=== PATIENT | female | born 1970 | race Caucasian/White ===

== ENCOUNTER 2018-11-15 23:40 | Emergency (ER) | payer MEDICAID ==
[2018-11-16] MEDS: KETOROLAC 15 MG INJ IV (01:08)
[2018-11-16] MEDS: ONDANSETRON 4 MG INJ IV (01:09)
[2018-11-16] MEDS: SOD CHLORIDE 0.9% 1,000 ML IV (01:09)
[2018-11-16 01:17] LABS: ADD MAN DIFF? NO
[2018-11-16 01:21] LABS: BASOPHILS % 0.2 % (0.0-2.0); EOSINOPHILS # 0.1 10^3/ul (0.0-0.5); HEMATOCRIT 35.5 % (37.0-47.0); HEMOGLOBIN 11.4 g/dl (12.0-16.0); LYMPHOCYTES # 1.3 10^3/ul (0.8-2.9); MEAN CORPUSCULAR HEMOGLOBIN 29.9 pg (29.0-33.0); MEAN CORPUSCULAR HGB CONC 32.1 g/dl (32.0-37.0); MEAN CORPUSCULAR VOLUME 93.2 fl (82.0-101.0); MEAN PLATELET VOLUME 10.4 fl (7.4-10.4); MONOCYTE # 0.6 10^3/ul (0.3-0.9); NEUTROPHILS % 65.6 % (39.0-77.0); PLATELET COUNT 305 10^3/UL (140-415); RED BLOOD COUNT 3.81 10^6/ul (4.20-5.40); RED CELL DISTRIBUTION WIDTH 12.3 % (11.5-14.5)
[2018-11-16 01:21] LABS: WHITE BLOOD COUNT 6.1 10^3/ul (4.8-10.8)
[2018-11-16 01:45] LABS: ALANINE AMINOTRANSFERASE 32 IU/L (13-69); ALBUMIN/GLOBULIN RATIO 1.08; ALKALINE PHOSPHATASE 106 IU/L (42-121); ANION GAP 9 (5-13); ASPARTATE AMINO TRANSFERASE 39 IU/L (15-46); BILIRUBIN,INDIRECT 0.5 mg/dl (0-1.1); BILIRUBIN,TOTAL 0.5 mg/dl (0.2-1.3); BLOOD UREA NITROGEN 16 mg/dl (7-20); CARBON DIOXIDE 25 mmol/L (21-31); CHLORIDE 105 mmol/L (97-110); CREATININE 0.66 mg/dl (0.44-1.00); Estimated GFR > 60 mL/min (>60); GLUCOSE 107 mg/dl (70-220); LIPASE 103 U/L (23-300); POTASSIUM 4.1 mmol/L (3.5-5.1); SODIUM 139 mmol/L (135-144); TOTAL PROTEIN 7.7 g/dl (6.1-8.1)
[2018-11-16] MEDS: LIDOCAINE/MYLANTA 40 ML BTL PO (02:14)
[2018-11-16] MEDS: FAMOTIDINE 20 MG TAB PO (02:14)
[2018-11-16] MEDS: METOCLOPRAMIDE 10 MG INJ IV (02:14)
== END 2018-11-16 02:26 | disposition home or self-care (01) ==
LOC: E/R 23:40
DX: R10.13 Epigastric pain (principal)
CPT/HCPCS: 36415; 76705; 80053; 83690; 84703; 85025; 93005; 96361; 96374; 96375; 99285-25